=== PATIENT | male | born 1990 | race Two or more races ===

== ENCOUNTER 2016-05-07 18:09 | Emergency (ER) | payer OTHER ==
[2016-05-07] MEDS ORDERED: IBUPROFEN 600 MG TAB PO ONE ×2 (18:35→18:45)
[2016-05-07] MEDS ORDERED: NS 1,000 ML IV ONE ×2 (18:39→20:45)
--- NOTE | 2016-05-07 18:43 | UCPHY ---
H & P Patient Type: Established Time Seen by Provider: 05/07/16 18:38 HPI/ROS: CHIEF COMPLAINT: Left jaw swelling HISTORY OF PRESENT ILLNESS: Patient is a 26-year-old healthy man who comes to the Urgent Care complaining of left-sided jaw swelling, pain and fever. He had a lower left wisdom tooth removed on Wednesday. He seemed to be recovering well until yesterday when he began to have swelling in his cheek and jaw. He now has fever and pain. His temperature is 102 degrees here at triage. He has been taking ibuprofen and Tylenol today. He does not have any difficulty swelling or intraoral swelling. REVIEW OF SYSTEMS: Constitutional: denies: chills, fever, recent illness, recent injury EENTM: See HPI Respiratory: denies: cough, shortness of breath Cardiac: denies: chest pain, irregular heart rate, lightheadedness, palpitations Gastrointestinal/Abdominal: denies: abdominal pain, diarrhea, nausea, vomiting, blood streaked stools Genitourinary: denies: dysuria, frequency, hematuria, pain Musculoskeletal: denies: joint pain, muscle pain Skin: denies: lesions, rash, jaundice, bruising Neurological: denies: headache, numbness, paresthesia, tingling, dizziness, weakness Hematologic/Lymphatic: denies: blood clots, easy bleeding, easy bruising Immunologic/allergic: denies: HIV/AIDS, transplant EXAM: GENERAL: Well-appearing, well-nourished and in no acute distress. HEAD: Atraumatic, normocephalic. EYES: Pupils equal round and reactive to light, extraocular movements intact, sclera anicteric, conjunctiva are normal. ENT: Tympanic membranes normal, swelling at the angle of left mandible and submandibular, firm, tender, no intraoral swelling. Socket visible and left lower not bleeding. No obvious swelling of gums . NECK: Normal range of motion, supple without lymphadenopathy or JVD. LUNGS: Breath sounds clear to auscultation bilaterally and equal. No wheezes rales or rhonchi. HEART: Regular rate and rhythm without murmurs, rubs or gallops. ABDOMEN: Soft, nontender, normoactive bowel sounds. No guarding, no rebound. No masses appreciated. BACK: No CVA tenderness, no spinal tenderness, step-offs or deformities EXTREMITIES: Normal range of motion, no pitting or edema. No clubbing or cyanosis. NEUROLOGICAL: Cranial nerves II through XII grossly intact. Normal speech, normal gait. 5/5 strength, normal movement in all extremities, normal sensation PSYCH: Normal mood, normal affect. SKIN: Warm, dry, normal turgor, no visible rashes or lesions. Source: Patient Exam Limitations: No limitations - Medical/Surgical History Hx Asthma: No Hx Chronic Respiratory Disease: No Hx Diabetes: No Hx Cardiac Disease: No Hx Renal Disease: No Hx Cirrhosis: No Hx Alcoholism: No Hx HIV/AIDS: No Hx Splenectomy or Spleen Trauma: No Other PMH: med hx-none. surg-none - Family History Significant Family History: No pertinent family hx - Social History Smoking Status: Current some day smoker Alcohol Use: Sober Drug Use: None Constitutional: Initial Vital Signs Temperature (C) 38.9 C H 05/07/16 18:38 Heart Rate 116 H 05/07/16 18:38 Respiratory Rate 20 05/07/16 18:38 Blood Pressure 121/69 H 05/07/16 18:38 O2 Sat (%) 95 05/07/16 18:38 O2 Delivery Mode Room Air Allergies/Adverse Reactions: No Known Allergies Allergy (Verified 01/18/16 22:03) Home Medications: Medication Instructions Recorded Famotidine [Pepcid] 40 mg PO HS #30 tablet 01/18/16 Penicillin VK 05/07/16 Medical Decision Making - Diagnostics Imaging: Results: CT scan of the maxillofacial was obtained. The results of the study are positive for phlegmon versus early abscess near the left vallecular [place] with mass effect causing narrowing of the airway and right 1 cm shift. Also small medial wall fracture near the tooth extraction. The study was read by Dr. Adan. I viewed the images myself on the PACS system. ED Course/Re-evaluation: 8:26 p.m. Discussed the case with Dr. Jean from ENT who recommends clindamycin IV and Decadron and will consult. She recommends admission to the hospital service. 8:[address] Jessica Nguyen who Initially accepted the patient but then the hospital's full so will need to transfer. 9:[address] Key accepted condition upon acceptance by specialist.. I also spoke with Dr. Foreman who is the ENT initially provided. He states that he is not legal receptionist. Then spoke with Dr. Jenkins who accepted for ENT. Differential Diagnosis: Partial list of the Differential diagnosis considered include but were not limited to; dental abscess, pharyngeal abscess, phlegmon and although unlikely based on the history and physical exam, I also considered meningitis. I discussed these differential diagnoses and the plan with the patient as well as the usual and expected course. The patient understands that the diagnosis is provisional and that in medicine we are not always correct and that further workup is often warranted. Usual and customary warnings were given. All of the patient's questions were answered. The patient was instructed to return to the emergency department should the symptoms at all worsen or return, otherwise to followup with the physician as we discussed. - Data Points Laboratory Results: Laboratory Results 05/07/16 19:00 05/07/16 19:00 05/07/16 05/07/16 05/07/16 19:00 19:00 19:00 WBC 10.71 10^3/uL H 10^3/uL (3.80-9.50) RBC 5.21 10^6/uL 10^6/uL (4.40-6.38) Hgb 15.8 g/dL g/dL (13.7-17.5) Hct 45.7 % % (40.0-51.0) MCV 87.7 fL fL (81.5-99.8) MCH 30.3 pg pg (27.9-34.1) MCHC 34.6 g/dL g/dL (32.4-36.7) RDW 11.9 % % (11.5-15.2) Plt Count 172 10^3/uL 10^3/uL (150-400) MPV 11.2 fL fL (8.7-11.7) Neut % (Auto) 75.4 % H % (39.3-74.2) Lymph % (Auto) 12.3 % L % (15.0-45.0) [place] % (Auto) 10.1 % % (4.5-13.0) Eos % (Auto) 1.6 % % (0.6-7.6) Baso % (Auto) 0.4 % % (0.3-1.7) Nucleat RBC Rel Count 0.0 % % (0.0-0.2) Absolute Neuts (auto) 8.08 10^3/uL H 10^3/uL (1.70-6.50) Absolute Lymphs (auto) 1.32 10^3/uL 10^3/uL (1.00-3.00) Absolute Monos (auto) 1.08 10^3/uL H 10^3/uL (0.30-0.80) Absolute Eos (auto) 0.17 10^3/uL 10^3/uL (0.03-0.40) Absolute Basos (auto) 0.04 10^3/uL 10^3/uL (0.02-0.10) Absolute Nucleated RBC 0.00 10^3/uL 10^3/uL (0-0.01) Immature Gran % 0.2 % % (0.0-1.1) Immature Gran # 0.02 10^3/uL 10^3/uL (0.00-0.10) PT 15.1 SEC H SEC (12.0-15.0) INR 1.22 H (0.83-1.16) APTT 30.5 SEC SEC (23.0-38.0) VBG Lactic Acid Sodium 139 mEq/L mEq/L (134-144) Potassium 3.7 mEq/L mEq/L (3.5-5.2) Chloride 100 mEq/L mEq/L (97-110) Carbon Dioxide 23 mEq/l mEq/l (22-31) Anion Gap 16 mEq/L mEq/L (8-16) BUN 9 mg/dL mg/dL (7-23) Creatinine 0.9 mg/dL mg/dL (0.7-1.3) Estimated GFR > 60 Glucose 101 mg/dL H mg/dL (70-100) Calcium 9.0 mg/dL mg/dL (8.5-10.4) Total Bilirubin 1.3 mg/dL mg/dL (0.1-1.4) 05/07/16 19:00 WBC RBC Hgb Hct MCV MCH MCHC RDW Plt Count MPV Neut % (Auto) Lymph % (Auto) [place] % (Auto) Eos % (Auto) Baso % (Auto) Nucleat RBC Rel Count Absolute Neuts (auto) Absolute Lymphs (auto) Absolute Monos (auto) Absolute Eos (auto) Absolute Basos (auto) Absolute Nucleated RBC Immature Gran % Immature Gran # PT INR APTT VBG Lactic Acid 0.8 mmol/L mmol/L (0.7-2.1) Sodium Potassium Chloride Carbon Dioxide Anion Gap BUN Creatinine Estimated GFR Glucose Calcium Total Bilirubin Medications Given: Discontinued Medications Dexamethasone (Decadron Injection) 10 mg IVP EDNOW ONE Stop: 05/07/16 20:26 Last Admin: 05/07/16 20:35 Dose: 10 mg Hydromorphone HCl (Dilaudid) 1 mg IVP EDNOW ONE Stop: 05/07/16 20:39 Last Admin: 05/07/16 20:40 Dose: 1 mg Sodium Chloride (Ns) 1,000 mls @ 0 mls/hr IV ONCE ONE PRN Reason: Wide Open Stop: 05/07/16 18:40 Last Admin: 05/07/16 19:00 Dose: 1,000 mls Clindamycin Phosphate/Dextrose (Cleocin 600 Mg (Premix)) 50 mls @ 100 mls/hr IV EDNOW ONE PRN Reason: Protocol Stop: 05/07/16 20:54 Last Admin: 05/07/16 20:35 Dose: 50 mls Sodium Chloride (Ns) 1,000 mls @ 0 mls/hr IV ONCE ONE PRN Reason: Wide Open Stop: 05/07/16 20:46 Last Admin: 05/07/16 20:45 Dose: 1,000 mls Ibuprofen (Motrin) 600 mg PO EDNOW ONE Stop: 05/07/16 18:46 Last Admin: 05/07/16 18:45 Dose: 600 mg Departure - Departure Disposition: Acute Care Hospital Not [facility] Clinical Impression: Phlegmon Condition: Fair Referrals: [facility] [Other] - As per Instructions - PQRS PQRS Measurement: Not applicable
[2016-05-07] MEDS ORDERED: IOPAMIDOL (ISOVUE-300) 100 ML BTL IV ONE (19:13)
[2016-05-07 19:19] LABS: % IMMATURE GRANULYOCYTES 0.2 % (0.0-1.1); ABSOLUTE IMMATURE GRANULOCYTES 0.02 10^3/uL (0.00-0.10); ADD DIFF? NO; ADD MORPH? NO; ADD SCAN? NO; ATYPICAL LYMPHOCYTE FLAG 0 (0-99); FRAGMENT RBC FLAG 0 (0-99); HEMATOCRIT 45.7 % (40.0-51.0); HEMOGLOBIN 15.8 g/dL (13.7-17.5); LEFT SHIFT FLG 0 (0-99); LIPEMIA HEMOLYSIS FLAG 90 (0-99); MEAN CELL HEMOGLOBIN 30.3 pg (27.9-34.1); MEAN CELL HEMOGLOBIN CONCENTR. 34.6 g/dL (32.4-36.7); MEAN CELL VOLUME 87.7 fL (81.5-99.8); MEAN PLATELET VOLUME 11.2 fL (8.7-11.7); PLATELET CLUMPS FLAG 0 (0-99); PLATELET COUNT 172 10^3/uL (150-400); RED BLOOD CELL COUNT 5.21 10^6/uL (4.40-6.38); RED CELL DISTRIBUTION WIDTH 11.9 % (11.5-15.2)
[2016-05-07 19:29] LABS: APTT 30.5 SEC (23.0-38.0); INR 1.22 (0.83-1.16); PROTIME(PATIENT) 15.1 SEC (12.0-15.0)
[2016-05-07 19:34] LABS: ANION GAP 16 mEq/L (8-16); BILIRUBIN,TOTAL 1.3 mg/dL (0.1-1.4); CARBON DIOXIDE 23 mEq/l (22-31); CHLORIDE 100 mEq/L (97-110); CREATININE 0.9 mg/dL (0.7-1.3); GLOMERULAR FILTRATION RATE > 60; GLUCOSE 101 mg/dL (70-100); POTASSIUM 3.7 mEq/L (3.5-5.2); SODIUM 139 mEq/L (134-144)
[2016-05-07 20:12] VITALS: RESP 18
[2016-05-07] MEDS ORDERED: CLINDAMYCIN 600 MG/DEXTROSE 50 ML IV ONE (20:25)
[2016-05-07] MEDS ORDERED: DEXAMETHASONE 10 MG/ML VIAL IVP ONE (20:25)
[2016-05-07] MEDS ORDERED: HYDROmorphONE/DILAUDID 1 MG/ML SYR ONE (20:29)
[2016-05-07] MEDS ORDERED: HYDROmorphONE/DILAUDID 1 MG/ML SYR IVP ONE (20:38)
[2016-05-07 22:09] VITALS: BP 113/80; PULSE 86; TEMP 98.6; O2SAT 99
== END 2016-05-07 22:20 | disposition short-term general hospital (02) ==
LOC: CED 18:09
DX: M27.2 Inflammatory conditions of jaws (principal)
CPT/HCPCS: 70487-PO; 80048-PO; 82247-PO; 83605-PO; 85025-PO; 85610-PO; 85730-PO; 96361-PO; 96365-PO; 96375-PO; 99215-PO; G0463-PO; J1170; Q9967